=== PATIENT | female | born 1960 | race Caucasian/White ===

== ENCOUNTER 2019-10-21 20:53 | Emergency (ER) | payer MEDICARE, MEDICAID ==
[~2019-10-21] VITALS: Ht 160 cm; Wt 81.0 kg
[2019-10-21 21:10] VITALS: BP 117/48
--- NOTE | 2019-10-21 22:11 | NUR ---
PT TO ROOM FROM LOBBY
[2019-10-21] MEDS ORDERED: HYDROmorphone 1 MG/ML, 1ML INJ IM ONE (22:30)
[2019-10-21] MEDS ORDERED: HYDROmorphone 1 MG/ML, 1ML VIAL ONE (22:30)
[2019-10-21] MEDS ORDERED: CYCLOBENZAPRINE 10 MG TABLET ONE (22:30)
[2019-10-21] MEDS ORDERED: CYCLOBENZAPRINE 10 MG TABLET PO ONE (22:30)
== END 2019-10-21 23:06 | disposition home or self-care (01) ==
LOC: ED 23:01
DX: S39.012D Strain of muscle, fascia and tendon of lower back, subsequent encounter (principal); M51.36 Other intervertebral disc degeneration, lumbar region; J44.9 Chronic obstructive pulmonary disease, unspecified; M19.90 Unspecified osteoarthritis, unspecified site; W18.30XA Fall on same level, unspecified, initial encounter; Y93.89 Activity, other specified; Y92.89 Other specified places as the place of occurrence of the external cause; Y99.8 Other external cause status
CPT/HCPCS: 96372; 99283; J1170

== ENCOUNTER → 2020-01-08 | Outpatient (CLI) | payer MEDICARE, MEDICAID ==
[~2020-01-08] MED LIST: REGADENOSON 0.4 MG/5 ML SYRINGE ONE
== END | disposition home or self-care (01) ==
LOC: CVU 10:44 → RAD 10:44
PROVIDERS: ATTEND Internal Medicine Cardiovascular Disease
DX: J44.9 Chronic obstructive pulmonary disease, unspecified (principal); R06.02 Shortness of breath
CPT/HCPCS: 78452; 93017; 93306; A9502; J2785